=== PATIENT | male | born 1940 | race Caucasian/White ===

== ENCOUNTER 2021-11-30 23:15 | Inpatient (IN) | payer OTHER ==
[~2021-11-30] VITALS: Ht 188 cm; Wt 74.0 kg
[2021-12-01] MEDS ORDERED: dilTIAZem 25 MG/5 ML VIAL IV ONE ×2 (00:28→00:45)
[2021-12-01] MEDS ORDERED: DIGOXIN (250MCG/ML) 2 ML AMPULE ONE (00:49)
[2021-12-01] MEDS ORDERED: dilTIAZem 125mg/125ml BAG KIT 125 ML IV ONE (01:00)
[2021-12-01 02:02] LABS: Basophils # (auto) 0.1 10 ^3/uL (0-0.2); Basophils % (auto) 0.9 % (0.0-2.0); Eosinophils # (auto) 0.2 10 ^3/uL (0-0.8); Eosinophils % (auto) 1.7 % (0.0-7.0); Hematocrit 40.5 % (36.0-46.0); Hemoglobin 13.3 g/dL (12.2-16.2); Lymphocytes # (auto) 1.3 10 ^3/uL (0.4-5.4); Lymphocytes % (auto) 12.7 % (10.0-50.0); Mean Corpuscular Hgb Conc. 32.8 g/dL (32.0-36.0); Mean Corpuscular Volume 82.4 fL (80.0-100.0); Monocytes # (auto) 0.6 10 ^3/uL (0-1.3); Monocytes % (auto) 6.1 % (0.0-12.0); Neutrophils # (auto) 8.3 10 ^3/uL (1.6-8.6); Neutrophils % (auto) 78.6 % (37.0-80.0); Red Blood Cells 4.91 10^6/uL (4.0-5.20); White Blood Cell 10.6 10^3/uL (4.4-10.8)
[2021-12-01 02:16] LABS: INR 1.1 (0.9-1.15); Partial Thromboplastin Time 23.9 sec (23.6-33.0)
[2021-12-01 02:25] LABS: Calcium 9.1 mg/dL (8.5-10.1); Potassium 3.1 mmol/L (3.5-5.1)
[2021-12-01 02:28] LABS: Albumin 3.4 g/dL (3.4-5.0); BUN/Creatinine Ratio 24.3
[2021-12-01 02:31] LABS: Bilirubin, Total 0.8 mg/dL (0.2-1.0); Total Protein 6.5 g/dL (6.4-8.2)
[2021-12-01] MEDS ORDERED: HYDROcodone-ACET 5/325MG TAB PO ONE (03:30)
[2021-12-01] MEDS ORDERED: ASPirin-EC 325mg tab PO ONE (03:30)
[2021-12-01] MEDS ORDERED: ENOXAPARIN SOD 80 MG/0.8ML SYRINGE SC ONE (03:30)
[2021-12-01] MEDS ORDERED: levoFLOXacin 500 MG TAB PO ONE (04:00)
[2021-12-01] MEDS ORDERED: methylPREDNISolone SOD SUCC 125 MG/2 ML VL IV ONE (04:00)
[2021-12-01] MEDS ORDERED: DOCUSATE SOD 100 MG CAP PO PRN (04:15)
[2021-12-01] MEDS ORDERED: ONDANSETRON HCL 4 MG/2 ML VIAL IV PRN (04:15)
[2021-12-01] MEDS: POTASSIUM CHL 10MEQ/50ML 50 ML IV SCH ×3 (04:15→05:32)
[2021-12-01] MEDS ORDERED: ACETAMINOPHEN 325 MG TAB PO PRN (04:15)
[2021-12-01] MEDS ORDERED: POTASSIUM CHL 20 Meq TABLET PO ONE ×2 (04:30→09:15)
[2021-12-01] MEDS: SODIUM CHLOR 0.9% PF (SALINE LOCK) 10ML VIAL/SYR IV SCH ×3 (05:23→22:57)
[2021-12-01] MEDS ORDERED: NITROGLYCERIN 0.4 MG SL TAB SL PRN (06:45)
[2021-12-01] MEDS ORDERED: MORPHINE SULFATE INJECTION 2 MG/ML SYRG IV PRN (06:45)
[2021-12-01 06:49] LABS: Basophils # (auto) 0.1 10 ^3/uL (0-0.2); Eosinophils # (auto) 0.1 10 ^3/uL (0-0.8); Eosinophils % (auto) 0.9 % (0.0-7.0); Lymphocytes # (auto) 1.1 10 ^3/uL (0.4-5.4); Monocytes # (auto) 0.6 10 ^3/uL (0-1.3)
[2021-12-01 06:53] LABS: Hematocrit 38.5 % (41.0-53.0); Lymphocytes % (auto) 11.6 % (10.0-50.0); Mean Corpuscular Hemoglobin 27.4 pg (28.0-32.0); Mean Corpuscular Hgb Conc. 33.7 g/dL (32.0-36.0); Mean Corpuscular Volume 81.3 fL (80.0-100.0); Monocytes % (auto) 5.8 % (0.0-12.0); Neutrophils # (auto) 7.7 10 ^3/uL (1.6-8.6); Neutrophils % (auto) 80.7 % (37.0-80.0); Red Blood Cells 4.73 10^6/uL (4.5-5.90); Red Cell Distribution Width 14.6 % (11.8-14.3); White Blood Cell 9.6 10^3/uL (4.4-10.8)
[2021-12-01] MEDS ORDERED: FUROSEMIDE 20 MG/2 ML VIAL IV ONE (07:15)
[2021-12-01] MEDS: CARBIDOPA W LEVODOPA 25/100mg TABLET PO SCH ×3 (07:25→22:57)
[2021-12-01 07:33] LABS: Albumin 3.3 g/dL (3.4-5.0); BUN/Creatinine Ratio 25.8; Bilirubin, Total 0.9 mg/dL (0.2-1.0); Calcium 8.7 mg/dL (8.5-10.1); Total Protein 6.4 g/dL (6.4-8.2)
[2021-12-01] MEDS: MORPHINE SULFATE 4 MG/ML SYR/VIAL IV PRN (07:40)
[2021-12-01] MEDS ORDERED: AMMONIA 0.33 ML INHALANT IN ONE (08:30)
[2021-12-01] MEDS ORDERED: DIGOXIN (250MCG/ML) 2 ML AMPULE IV ONE (09:15)
[2021-12-01] MEDS ORDERED: AMIODARONE HCL 150 MG in D5W 5% 100 ML IV ONE (09:15)
[2021-12-01] MEDS ORDERED: AMIODARONE 450mg/250ml AE 250 ML IV SCH ×2 (09:30→15:30)
[2021-12-01] MEDS ORDERED: APIXABAN 5 MG TAB PO SCH (10:00)
[2021-12-01] MEDS ORDERED: dilTIAZem HCL 180MG ER CAP PO SCH (10:00)
[2021-12-01 10:18] LABS: Cholesterol 102 mg/dL (< 200)
[2021-12-01 10:21] LABS: HDL Cholesterol 48 mg/dL (40-59); LDL Cholesterol 47 mg/dL (< 100); Triglycerides 59 mg/dL (< 150)
[2021-12-01] MEDS: ASPirin 81 mg TAB PO SCH (10:23)
[2021-12-01] MEDS: FAMOTIDINE (10MG/ML) 2ML VL IV SCH (10:23)
[2021-12-01] MEDS: ENOXAPARIN SOD 80 MG/0.8ML SYRINGE SC SCH ×2 (10:23→22:57)
[2021-12-01] MEDS: HYDROcodone-ACET 5/325MG TAB PO PRN (12:17)
[2021-12-01] MEDS ORDERED: LORazepam 2MG/ML-1ML VIAL IV PRN (17:00)
[2021-12-01] MEDS: FUROSEMIDE 40 MG/4 ML VIAL IV SCH (18:18)
[2021-12-02] MEDS: HYDROcodone-ACET 5/325MG TAB PO PRN ×3 (03:46→16:36)
[2021-12-02 03:59] LABS: Urine Bacteria FEW /hpf (None Seen); Urine Blood 2+ /uL (Negative); Urine Hyaline Cast MOD /lpf (0 - 2); Urine WBC 1 /hpf (0 - 3)
[2021-12-02] MEDS: CARBIDOPA W LEVODOPA 25/100mg TABLET PO SCH ×3 (06:18→22:00)
[2021-12-02] MEDS: FUROSEMIDE 40 MG/4 ML VIAL IV SCH ×2 (06:18→18:29)
[2021-12-02] MEDS: SODIUM CHLOR 0.9% PF (SALINE LOCK) 10ML VIAL/SYR IV SCH ×3 (06:18→22:43)
[2021-12-02 06:35] LABS: Basophils # (auto) 0.1 10 ^3/uL (0-0.2); Monocytes # (auto) 0.8 10 ^3/uL (0-1.3); Red Cell Distribution Width 14.6 % (11.8-14.3)
[2021-12-02 06:40] LABS: Basophils % (auto) 1.1 % (0.0-2.0); Eosinophils # (auto) 0.3 10 ^3/uL (0-0.8); Eosinophils % (auto) 2.3 % (0.0-7.0); Hematocrit 41.9 % (41.0-53.0); Hemoglobin 13.8 g/dL (13.5-17.5); Lymphocytes # (auto) 1.3 10 ^3/uL (0.4-5.4); Lymphocytes % (auto) 10.7 % (10.0-50.0); Mean Corpuscular Hgb Conc. 32.9 g/dL (32.0-36.0); Mean Corpuscular Volume 82.1 fL (80.0-100.0); Monocytes % (auto) 6.9 % (0.0-12.0); Neutrophils # (auto) 9.4 10 ^3/uL (1.6-8.6); Red Blood Cells 5.11 10^6/uL (4.5-5.90)
[2021-12-02 06:52] LABS: Potassium 3.3 mmol/L (3.5-5.1)
[2021-12-02 07:17] LABS: Albumin 3.4 g/dL (3.4-5.0); Bilirubin, Total 1.1 mg/dL (0.2-1.0); Calcium 8.4 mg/dL (8.5-10.1); Magnesium 1.7 mg/dL (1.6-2.6); Phosphorus 2.5 mg/dL (2.5-4.90); Total Protein 6.9 g/dL (6.4-8.2)
[2021-12-02 08:08] LABS: INR 1.17 (0.9-1.15); Partial Thromboplastin Time 36.2 sec (23.6-33.0)
[2021-12-02] MEDS ORDERED: AMIODARONE HCL 200 MG TAB PO ONE (08:15)
[2021-12-02] MEDS ORDERED: POTASSIUM CHL 20 Meq TABLET PO ONE (08:15)
[2021-12-02] MEDS ORDERED: MAGNESIUM SULFATE 1GM/100ML 100 ML IV ONE (08:15)
[2021-12-02] MEDS: MORPHINE SULFATE 4 MG/ML SYR/VIAL IV PRN (08:19)
[2021-12-02] MEDS: FAMOTIDINE (10MG/ML) 2ML VL IV SCH (08:41)
[2021-12-02] MEDS: ASPirin 81 mg TAB PO SCH (08:48)
[2021-12-02] MEDS: METOPROLOL TARTRATE 50 MG TAB PO SCH ×2 (08:48→22:00)
[2021-12-02] MEDS: DIGOXIN 0.125 MG TAB PO SCH (08:48)
[2021-12-02] MEDS: ENOXAPARIN SOD 80 MG/0.8ML SYRINGE SC SCH ×2 (08:49→22:00)
[2021-12-02] MEDS ORDERED: FUROSEMIDE 20 MG/2 ML VIAL IV SCH (10:00)
[2021-12-02] MEDS ORDERED: FROV1TAB PO (10:33)
[2021-12-02] MEDS ORDERED: VENL150C58 PO (10:33)
[2021-12-02] MEDS ORDERED: CARB25TA77 PO (10:33)
[2021-12-02] MEDS ORDERED: DILT180C55 PO (10:33)
[2021-12-02] MEDS ORDERED: HYDR-4072 PO (10:33)
[2021-12-02 13:00] VITALS: BP 156/95
[2021-12-02 17:00] VITALS: BP 146/95
[2021-12-02 22:00] VITALS: BP 141/83
[2021-12-02] MEDS: AMIODARONE HCL 200 MG TAB PO SCH (22:00)
[2021-12-03 05:00] VITALS: BP 146/91
[2021-12-03] MEDS: CARBIDOPA W LEVODOPA 25/100mg TABLET PO SCH ×3 (06:00→22:00)
[2021-12-03 06:45] LABS: Basophils # (auto) 0.1 10 ^3/uL (0-0.2); Basophils % (auto) 0.9 % (0.0-2.0); Eosinophils # (auto) 0.3 10 ^3/uL (0-0.8); Hemoglobin 13.6 g/dL (13.5-17.5); Lymphocytes # (auto) 1.3 10 ^3/uL (0.4-5.4); Monocytes % (auto) 7.1 % (0.0-12.0); Nucleated Red Blood Cells % 0.1 %
[2021-12-03 06:47] LABS: INR 1.11 (0.9-1.15); Partial Thromboplastin Time 33.4 sec (23.6-33.0)
[2021-12-03 06:49] LABS: Eosinophils % (auto) 2.9 % (0.0-7.0); Hematocrit 40.7 % (41.0-53.0); Lymphocytes % (auto) 12.6 % (10.0-50.0); Mean Corpuscular Hemoglobin 27.1 pg (28.0-32.0); Mean Corpuscular Hgb Conc. 33.5 g/dL (32.0-36.0); Mean Corpuscular Volume 80.8 fL (80.0-100.0); Monocytes # (auto) 0.7 10 ^3/uL (0-1.3); Neutrophils % (auto) 76.5 % (37.0-80.0); Red Blood Cells 5.03 10^6/uL (4.5-5.90); Red Cell Distribution Width 14.8 % (11.8-14.3); White Blood Cell 10.4 10^3/uL (4.4-10.8)
[2021-12-03 06:51] LABS: BUN/Creatinine Ratio 13.2
[2021-12-03 07:01] LABS: Potassium 2.9 mmol/L (3.5-5.1)
[2021-12-03] MEDS: FUROSEMIDE 40 MG/4 ML VIAL IV SCH ×2 (07:02→18:00)
[2021-12-03] MEDS: SODIUM CHLOR 0.9% PF (SALINE LOCK) 10ML VIAL/SYR IV SCH ×3 (07:12→21:51)
[2021-12-03 09:00] VITALS: BP 156/101
[2021-12-03] MEDS: POTASSIUM CHL 10MEQ/50ML 50 ML IV SCH ×4 (09:30→12:30)
[2021-12-03] MEDS: FAMOTIDINE (10MG/ML) 2ML VL IV SCH (10:00)
[2021-12-03] MEDS: METOPROLOL TARTRATE 50 MG TAB PO SCH ×2 (10:00→22:00)
[2021-12-03] MEDS: DIGOXIN 0.125 MG TAB PO SCH (10:00)
[2021-12-03] MEDS: AMIODARONE HCL 200 MG TAB PO SCH ×2 (10:00→22:00)
[2021-12-03] MEDS: ASPirin 81 mg TAB PO SCH (10:00)
[2021-12-03] MEDS ORDERED: MIDAZOLAM HCL 2MG/2ML 2ml VIAL (1mg/ml) ONE (12:12)
[2021-12-03] MEDS ORDERED: fentaNYL CITRATE 100 MCG/2 ML VL ONE (12:12)
[2021-12-03] MEDS ORDERED: diphenhdrAMINE HCL 50 MG/1 ML VL ONE (12:13)
[2021-12-03] MEDS ORDERED: diphenhdrAMINE HCL 50 MG/1 ML VL IV ONE (12:15)
[2021-12-03] MEDS ORDERED: fentaNYL CITRATE 100 MCG/2 ML VL IV ONE (12:15)
[2021-12-03] MEDS ORDERED: MIDAZOLAM HCL 2MG/2ML 2ml VIAL (1mg/ml) IV ONE (12:15)
[2021-12-03 13:00] VITALS: BP 139/75
[2021-12-03 17:00] VITALS: BP 169/104
[2021-12-03] MEDS ORDERED: METOPROLOL TARTRATE 1MG/1ML-5ML VIAL IV PRN (17:15)
[2021-12-03 19:41] LABS: Albumin 3.1 g/dL (3.4-5.0); Potassium 3.4 mmol/L (3.5-5.1)
[2021-12-03 19:44] LABS: BUN/Creatinine Ratio 14.9; Bilirubin, Total 1.1 mg/dL (0.2-1.0); Total Protein 6.1 g/dL (6.4-8.2)
[2021-12-03 22:00] VITALS: BP 168/91
[2021-12-04 05:00] VITALS: BP 163/77
[2021-12-04] MEDS: FUROSEMIDE 40 MG/4 ML VIAL IV SCH (05:28)
[2021-12-04] MEDS: SODIUM CHLOR 0.9% PF (SALINE LOCK) 10ML VIAL/SYR IV SCH ×3 (05:29→22:19)
[2021-12-04] MEDS: CARBIDOPA W LEVODOPA 25/100mg TABLET PO SCH ×3 (05:57→22:20)
[2021-12-04] MEDS: POTASSIUM CHL 10MEQ/50ML 50 ML IV SCH ×2 (09:00→10:00)
[2021-12-04] MEDS: AMIODARONE HCL 200 MG TAB PO SCH ×2 (10:00→22:20)
[2021-12-04] MEDS: METOPROLOL TARTRATE 50 MG TAB PO SCH ×2 (10:00→22:19)
[2021-12-04] MEDS: DIGOXIN (250MCG/ML) 2 ML AMPULE IV SCH (10:00)
[2021-12-04] MEDS: HYDROcodone-ACET 5/325MG TAB PO PRN (12:35)
[2021-12-04] MEDS: MORPHINE SULFATE 4 MG/ML SYR/VIAL IV PRN (18:16)
[2021-12-04] MEDS: APIXABAN 2.5 MG TAB PO SCH (22:20)
[2021-12-05 05:00] VITALS: BP_SYST 129; BP_SYST 150; BP_DIAS 65; BP_DIAS 96
[2021-12-05] MEDS: SODIUM CHLOR 0.9% PF (SALINE LOCK) 10ML VIAL/SYR IV SCH ×2 (06:24→14:06)
[2021-12-05] MEDS: CARBIDOPA W LEVODOPA 25/100mg TABLET PO SCH ×2 (06:24→14:03)
[2021-12-05 09:00] VITALS: BP 136/90
[2021-12-05] MEDS: AMIODARONE HCL 200 MG TAB PO SCH (10:11)
[2021-12-05] MEDS: METOPROLOL TARTRATE 50 MG TAB PO SCH (10:11)
[2021-12-05] MEDS: DIGOXIN (250MCG/ML) 2 ML AMPULE IV SCH (10:11)
[2021-12-05] MEDS: HYDROcodone-ACET 5/325MG TAB PO PRN (10:11)
[2021-12-05] MEDS: APIXABAN 2.5 MG TAB PO SCH (10:12)
[2021-12-05] MEDS ORDERED: PANTOPRAZOLE 40 MG TAB PO ONE (10:30)
[2021-12-05] MEDS ORDERED: AMIO200T33 PO (11:04)
[2021-12-05] MEDS ORDERED: DIGO0.12 PO (11:04)
[2021-12-05] MEDS ORDERED: MET50T PO (11:04)
[2021-12-05] MEDS ORDERED: APIX2.5T PO (11:04)
[2021-12-05] MEDS ORDERED: POTA-220 PO (12:18)
[2021-12-05 14:26] VITALS: BP 114/84
[2021-12-05 15:32] VITALS: BP 156/102
== END 2021-12-05 18:58 | disposition home or self-care (01) | DRG 280 ==
LOC: ER 23:15 → EDSEX 23:15 → EDBD 23:15 → TELE 12-01 07:10 → TELE-CENTR 12-02 13:05 → TELE-EAST 12-02 13:19
PROVIDERS: ADMIT Nurse Practitioner Family; ATTEND Internal Medicine
PROC: 5A2204Z Restoration of Cardiac Rhythm, Single (ICD-10-PCS; principal; 2021-12-03)
PROC: B246ZZ4 Ultrasonography of Right and Left Heart, Transesophageal (ICD-10-PCS; 2021-12-03)
PROC: 0W993ZZ Drainage of Right Pleural Cavity, Percutaneous Approach (ICD-10-PCS; 2021-12-04)
DX: I11.0 Hypertensive heart disease with heart failure (principal); I21.A1 Myocardial infarction type 2; G93.41 Metabolic encephalopathy; I50.31 Acute diastolic (congestive) heart failure; I48.11 Longstanding persistent atrial fibrillation; I16.9 Hypertensive crisis, unspecified; D68.69 Other thrombophilia; J91.8 Pleural effusion in other conditions classified elsewhere; E78.5 Hyperlipidemia, unspecified; Z66 Do not resuscitate; E87.6 Hypokalemia; G20 Parkinson's disease; F02.80 Dementia in other diseases classified elsewhere, unspecified severity, without behavioral disturbance, psychotic disturbance, mood disturbance, and anxiety; E83.42 Hypomagnesemia; G43.909 Migraine, unspecified, not intractable, without status migrainosus; Z20.822 Contact with and (suspected) exposure to COVID-19; Z79.01 Long term (current) use of anticoagulants; Z88.0 Allergy status to penicillin
CPT/HCPCS: 32555; 36415; 36600; 70450; 71045; 73501; 76604; 76942; 80048; 80053; 80061; 81001; 82805; 83036; 83735; 83880; 84100; 84443; 84484; 85025; 85379; 85610; 85730; 87205; 87426; 89051; 92960; 93005; 93306; 93312; 95819; 96365; 96372; 96375; 97163; 99152; 99291; G0378; J2250; J2405; J3490; J7060